=== PATIENT | female | born 1990 | race Caucasian/White ===

== ENCOUNTER → 2019-06-17 10:10 | Outpatient (CLI) | payer OTHER, SELFPAY ==
--- NOTE | ~2019-06-17 | XR_ITS ---
EXAMINATION: XR lumbar spine 2-3V DATE: 06/17/2019 10:48 INDICATION: Dorsalis unspecified TECHNIQUE: Anteroposterior and lateral views of the lumbar spine, and cone-down lateral view of the l umbosacral junction were obtained. COMPARISON: None. FINDINGS: No fracture is identified. There is mild lumbar levocurvature. There are 2 mm of retrolisth esis of L5 on S1. Vertebral body alignment is otherwise normal. The vertebral body heights and interv ertebral disc spaces are maintained. The bowel gas pattern is normal. IMPRESSION: 1. Mild lumbar spondylosis without acute findings. Reviewed, dictated and finalized at location B.
== END ==
PROVIDERS: PCP Physician Assistant Medical; Visit Provider Nurse Practitioner Family
DX: M54.9 Dorsalgia, unspecified (principal); M47.816 Spondylosis without myelopathy or radiculopathy, lumbar region
CPT/HCPCS: 72100

== ENCOUNTER 2019-07-22 22:27 | Emergency (ER) | payer OTHER, SELFPAY ==
[2019-07-22 22:28] VITALS: BP 132/76; PULSE 107; RESP 18; TEMP 36.2; O2SAT 100
[2019-07-22] MEDS: LIDOCAINE HCL 1% LOCAL INJ 20 ML VIAL (23:06)
--- NOTE | 2019-07-22 23:09 | ED.UPPEXIN ---
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 Denies any other injuries. Td 2 years ago Severity: mild Related Data Allergies Allergy/AdvReac Type Severity Reaction Status Date / Time No Known Allergies Allergy Verified 07/22/19 22:28 Review of Systems Review of Systems: All systems reviewed & are unremarkable except as noted in HPI and below PMFSH Social History Social History Smoking status: Former smoker Smoking end date: 03/24/15 Alcohol intake: current Gender identity (if verbalized by the patient): Female Exam Const: General: no acute distress Extrem: Other: metal fish hook palmar aspect of left hand, neurovasc intact Course Vital Signs Vital signs: Vital Signs Temperature 36.2 C L 07/22/19 22:28 Pulse Rate 107 H 07/22/19 22:28 Respiratory Rate 18 07/22/19 22:28 Blood Pressure 132/76 07/22/19 22:28 Pulse Oximetry 100 07/22/19 22:28 Temperature 36.2 C L 07/22/19 22:28 Pulse Rate 107 H 07/22/19 22:28 Respiratory Rate 18 07/22/19 22:28 Blood Pressure 132/76 07/22/19 22:28 Pulse Oximetry 100 07/22/19 22:28 Procedures Foreign Body Removal Foreign Body #1: Foreign Body Removal Date: 07/22/19 Foreign Body Removal Time: 23:13 Time Out Performed: yes Site: left and upper extremity Description of foreign body: fish hook Sedation/Analgesia: none Technique: manual removal and removal with forceps Complications: none Post-procedure exam: awake, alert Neurovascular: normal distal pulse, normal capillary fill, distal light touch sensation intact, distal motor function normal and no signs of compartment syndrome Discharge Plan Discharge Clinical Impression: Foreign body in hand Qualifiers: Encounter type: initial encounter Laterality: left Qualified Code(s): S60.552A - Superficial foreign body of left hand, initial encounter Patient Disposition: Home, Self-Care Condition: Improved Instructions: Antibiotic Form, Puncture Wound (ED) Prescriptions: No Action dextroamphetamine-amphetamine [Adderall] 10 mg tablet 10 mg PO DAILY Qty: 30 RF: 0 dextroamphetamine-amphetamine [Adderall XR] 15 mg capsule,extended release 24hr 15 mg PO QAM Qty: 30 RF: 0 duloxetine 30 mg capsule,delayed release(DR/EC) 30 mg PO DAILY Qty: 30 RF: 0 Follow-up/Referrals: Verónica Rodriguez PAC [Primary Care Provider] - 07/26/19 Time of Disposition: 23:26
[2019-07-22 23:35] VITALS: BP 121/76; PULSE 71; RESP 16; TEMP 36.7; O2SAT 100
== END 2019-07-22 23:41 | disposition home or self-care (01) ==
LOC: ANHED 23:38
PROVIDERS: Emergency Provider Emergency Medicine; PCP Physician Assistant Medical
DX: S60.552A Superficial foreign body of left hand, initial encounter (principal); Z87.891 Personal history of nicotine dependence; W45.8XXA Other foreign body or object entering through skin, initial encounter
CPT/HCPCS: 99282

== ENCOUNTER 2019-11-14 22:02 | Emergency (ER) | payer OTHER, SELFPAY ==
--- NOTE | ~2019-11-14 | XR_ITS ---
EXAMINATION: XR finger 2nd RT min 2V EXAM DATE: 11/14/2019 22:56 INDICATION: Cat bite to distal 2nd digit. Pain. TECHNIQUE: Right 2nd finger frontal, lateral and oblique projections obtained and reviewed. There is no prior study for comparison. FINDINGS: There are no bony erosions identified. There are no acute right 2nd finger fractures or di slocations identified. There is no subcutaneous gas. The soft tissue is unremarkable. There are n o radiopaque foreign bodies. IMPRESSION: 1. Unremarkable XR finger 2nd RT min 2V exam. Reviewed, dictated and finalized at location B.
[2019-11-14 22:08] VITALS: BP 123/87; PULSE 112; RESP 14; TEMP 37; O2SAT 100
[2019-11-14] MEDS: AMOXICILLIN/CLAVULANATE K 875-125 MG TAB 1 TABLET PO (22:44)
--- NOTE | 2019-11-14 23:24 | ED.ANIMALBIT ---
HPI - Animal Bite General Chief Complaint: Animal Bite Stated Complaint: cat bite Time Seen by Provider: 11/14/19 22:26 History of Present Illness HPI narrative: Patient is a 29-year-old female who presents ER after a cat bite to her right second digit. 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 Scratched her forearm and left ear. Then bit her right second digit. The cat is vaccinated to her knowledge. She is up-to-date on her immunizations. She has throbbing pain in her distal fingertip where there are puncture wounds to the fat pad x2 and little disruption of the cuticle on the volar aspect. Related Data Allergies Allergy/AdvReac Type Severity Reaction Status Date / Time No Known Allergies Allergy Verified 11/14/19 22:12 Review of Systems Constitutional: Constitutional: Denies chills and Denies fever(s) Musculoskeletal: Comments: Finger pain right second Neurologic: Comments: Puncture wounds to finger and cat scratches. PMFSH Social History Social History Smoking status: Former smoker Smoking end date: 03/24/15 Alcohol intake: current Gender identity (if verbalized by the patient): Female Exam Narrative: Exam Narrative: GENERAL: Well-appearing, well-nourished, and in no acute distress. HEAD: Normocephalic, atraumatic. EXTREMITIES: Normal range of motion. No edema. SKIN: Warm, dry. Abrasion to the right ear and right forearm/volar hand. Puncture wound to the second finger fat pad x2 without drainage and mild disruption of the cuticle over the volar aspect of the right second digit. NEURO: No focal deficits. Alert and oriented x3. PSYCH: Normal mood and affect. Course Course Emergency Course: Educated. Received first dose of the antibiotic. Discharge home. Vital Signs Vital signs: Vital Signs Temperature 98.6 F 11/14/19 22:08 Pulse Rate 112 H 11/14/19 22:08 Respiratory Rate 14 11/14/19 22:08 Blood Pressure 123/87 11/14/19 22:08 Pulse Oximetry 100 11/14/19 22:08 Temperature 98.6 F 11/14/19 22:08 Pulse Rate 112 H 11/14/19 22:08 Respiratory Rate 14 11/14/19 22:08 Blood Pressure 123/87 11/14/19 22:08 Pulse Oximetry 100 11/14/19 22:08 MDM - Animal Bite Imaging Data My impression: XR right second digit: Negative Discharge Plan Discharge Clinical Impression: Cat bite Patient Disposition: Home, Self-Care Condition: Stable Instructions: Antibiotic Form, Animal Bite (ED) Additional Instructions: Take the full course of antibiotics. Return to the ER if you have pus draining from your finger, you have a swollen red finger that cannot be moved, you have additional concerns such as fever over 100.4 ?F. Prescriptions: New amoxicillin-pot clavulanate [Augmentin] 875-125 mg tablet 1 tablet PO Q12H Qty: 20 RF: 0 No Action duloxetine 60 mg capsule, delayed rel sprinkle 60 mg PO DAILY Qty: 90 RF: 0 dextroamphetamine-amphetamine [Adderall] 10 mg tablet 10 mg PO DAILY Qty: 30 RF: 0 dextroamphetamine-amphetamine [Adderall XR] 15 mg capsule,extended release 24hr 15 mg PO QAM Qty: 30 RF: 0 Follow-up/Referrals: Verónica Rodriguez, PAC [Primary Care Provider] - 1 Week
[2019-11-14 23:49] VITALS: BP 134/82; PULSE 74; RESP 19; TEMP 36.3; O2SAT 100
== END 2019-11-14 23:50 | disposition home or self-care (01) ==
PROVIDERS: Emergency Provider Emergency Medicine; PCP Physician Assistant Medical
DX: S61.250A Open bite of right index finger without damage to nail, initial encounter (principal); Z87.891 Personal history of nicotine dependence; W55.01XA Bitten by cat, initial encounter
CPT/HCPCS: 73140; 99283; A9270

== ENCOUNTER 2019-11-15 08:12 | Emergency (ER) | payer OTHER, SELFPAY ==
[2019-11-15 08:19] VITALS: BP 138/94; PULSE 104; RESP 16; TEMP 36.6; O2SAT 99
--- NOTE | 2019-11-15 08:21 | ED.ANIMALBIT ---
HPI - Animal Bite General Chief Complaint: Animal Bite Stated Complaint: cat bite Time Seen by Provider: 11/15/19 08:20 History of Present Illness HPI narrative: Cat bite to the right index finger last night while at work. Seen here after the injury. Started on augmentin and given Innis. She is back now because she has severe pain and swelling of the finger. She tried the Innis without relief. No fever. Related Data Allergies Allergy/AdvReac Type Severity Reaction Status Date / Time No Known Allergies Allergy Verified 11/14/19 22:12 Review of Systems Review of Systems: All systems reviewed & are unremarkable except as noted in HPI and below Constitutional: Constitutional: Denies fever(s) Cardiovascular: Cardiovascular: Denies chest pain Respiratory: Respiratory: Denies dyspnea Psychiatric: Psychiatric: Reports anxiety [facility] Family History Family History Mother Family history of thyroid disease Family history of cardiovascular disease Social History Social History Smoking status: Former smoker Smoking end date: 03/24/15 Alcohol intake: current Gender identity (if verbalized by the patient): Female Exam Const: General: healthy appearing, no acute distress and alert Orientation/consciousness: patient oriented x3 HENMT: Head: normal to inspection Resp: Effort & Inspection: normal respiratory effort Auscultation: clear to auscultation bilaterally Cardio: Rate: regular rate Rhythm: regular rhythm Skin: Other: Abrasiosn to the face and right forearm. 3 small punture wounds to the distal right index finger Neuro: General: patient oriented x3 Speech: normal speech Other: Sensation and motor intact Extrem: Other: Right index finger severely swollen Psych: Affect: Anxious affect present Course Vital Signs Vital signs: Vital Signs Temperature 36.6 C 11/15/19 08:19 Pulse Rate 104 H 11/15/19 08:19 Respiratory Rate 16 11/15/19 08:19 Blood Pressure 138/94 H 11/15/19 08:19 Pulse Oximetry 99 11/15/19 08:19 Temperature 36.6 C 11/15/19 08:19 Pulse Rate 78 11/15/19 10:34 Respiratory Rate 16 11/15/19 10:34 Blood Pressure 116/68 11/15/19 10:34 Pulse Oximetry 100 11/15/19 10:34 Procedures Abscess I/D hand: Side (if applicable): right Technique: needle aspiration Amount of fluid expressed (mL): 1 Irrigation: No Packing used?: none I&D Results: Pus Abcess I&D Additional Comments: Puncture wounds from bite extended slightly and finger soaked in hypertonic solution. Nerve Block Nerve Block 1: Local Anesthetic: lidocaine 1% Side: right Nerve Blocks: digital Procedure Successful: Yes Patient Tolerated Procedure: well Complications: none MDM - Animal Bite Differential Diagnosis Differential diagnosis: Likely cat bite Medical Records Attestation: I reviewed the patient's medical records. Discharge Plan Discharge Clinical Impression: Cat bite Qualifiers: Encounter type: subsequent encounter Qualified Code(s): W55.01XD - Bitten by cat, subsequent encounter Patient Disposition: Home, Self-Care Condition: Stable Instructions: Antibiotic Form, Animal Bite (ED) Additional Instructions: Continue antibiotics. Continue soaking in warm water to help wounds drain. Prescriptions: No Action duloxetine 60 mg capsule, delayed rel sprinkle 60 mg PO DAILY Qty: 90 RF: 0 amoxicillin-pot clavulanate [Augmentin] 875-125 mg tablet 1 tablet PO Q12H Qty: 20 RF: 0 hydrocodone-acetaminophen [Innis] 5-325 mg tablet 1 tablet PO Q8H PRN (Reason: pain) Qty: 10 RF: 0 amoxicillin-pot clavulanate [Augmentin] 875-125 mg tablet 1 tablet PO Q12H Qty: 20 RF: 0 dextroamphetamine-amphetamine [Adderall] 10 mg tablet 10 mg PO DAILY Qty: 30 RF: 0 dextroamphet
[2019-11-15] MEDS: KETOROLAC (*BKC) 60 MG/2 ML VIAL IM (08:42)
[2019-11-15 09:19] VITALS: BP 138/75; PULSE 72; RESP 16; O2SAT 100
--- NOTE | 2019-11-15 09:19 | PC.NURSE ---
ÁLVARO LOPEZ AT BEDSIDE WITH MYSELF FOR LIDOCAINE INJECTION, PT TOLERATING PROCEDURE WELL.
[2019-11-15] MEDS: SODIUM CHLORIDE 3% 500 ML BAG 50 ML XX (09:53)
--- NOTE | 2019-11-15 09:53 | PC.NURSE ---
PT FINGER SOAKING IN 3% NS IN BASIN AT THIS TIME.
[2019-11-15 10:34] VITALS: BP 116/68; PULSE 78; RESP 16; O2SAT 100
== END 2019-11-15 10:35 | disposition home or self-care (01) ==
PROVIDERS: Emergency Provider Emergency Medicine; PCP Physician Assistant Medical
DX: S61.250A Open bite of right index finger without damage to nail, initial encounter (principal); Z87.891 Personal history of nicotine dependence; W55.01XA Bitten by cat, initial encounter
CPT/HCPCS: 10160; 96372; 99283; J1885; J7131

== ENCOUNTER 2019-12-25 00:58 | Emergency (ER) | payer OTHER, SELFPAY ==
[2019-12-25 01:05] VITALS: BP 128/95; PULSE 108; RESP 20; TEMP 36.6; O2SAT 100
--- NOTE | 2019-12-25 01:50 | ECG_ITS ---
Measurements Intervals [place] Rate: 95 P: 71 GA: 119 QRS: -5 QRSD: 92 T: 47 QT: 354 QTc: 447 Interpretive Statements SINUS RHYTHM WITH SHORT GA INTERVAL POSSIBLE LEFT ATRIAL ENLARGEMENT BORDERLINE ECG Electronically Signed On 12-25-2019 7:32:16 CDT by Tadeo Duran D.O.
--- NOTE | 2019-12-25 01:51 | ED.CHESTPAIN ---
HPI - Chest Pain General Chief Complaint: Chest Pain Stated Complaint: Nausea, CP Time Seen by Provider: 12/25/19 01:09 Source: patient Mode of arrival: ambulatory Limitations: no limitations History of Present Illness HPI narrative: This patient is a 29 year old female with history of ADHD and anxiety who presents for evaluation of nausea and chest pain. Patient reports she has chronic nausea due to her duloxetine but she has worsening nausea over the past 36 hours. She has taken zofran without relief. She denies associated abdominal pain or diarrhea. She also complains of intermittent midsternal chest pressure that is intermittent. She states this pain occurs mostly when she wakes up to go to work at night. She denies fever , cough or chills. LMP 2 weeks ago. Related Data Allergies Allergy/AdvReac Type Severity Reaction Status Date / Time No Known Allergies Allergy Verified 12/25/19 01:37 Review of Systems Review of Systems: All systems reviewed & are unremarkable except as noted in HPI and below Constitutional: Constitutional: Denies chills and Denies fever(s) Cardiovascular: Cardiovascular: Reports chest pain and Denies radiating jaw, neck or arm pain Respiratory: Respiratory: Denies cough and Denies dyspnea Gastrointestinal: Gastrointestinal: Denies abdominal pain, Denies diarrhea, Reports nausea and Denies vomiting Genitourinary: Genitourinary: Denies hematuria, Denies dysuria and Denies urinary incontinence PMFSH Past Medical History Medical History (Updated 12/25/19 @ 03:59 by Anisha Lara MD) Anxiety Surgical History Surgical History (Updated 12/25/19 @ 02:06 by Anisha Lara MD) No significant past surgical history Social History Social History Smoking status: Former smoker Smoking end date: 03/24/15 Alcohol intake: current Gender identity (if verbalized by the patient): Female Exam Narrative: Exam Narrative: GENERAL: Well-appearing, well-nourished, and in no acute distress. HEAD: Normocephalic, atraumatic EYES: EOMI, conjunctiva clear without discharge NECK: Supple, without lymphadenopathy or mass RESPIRATORY: No respiratory distress, Airway patent, Respirations non-labored, Clear to auscultation without rales, rhonchi or wheeze HEART: Regular rate and rhythm. No murmur heard. Normal peripheral pulses. ABDOMEN: Soft, nontender, nondistended, normal active bowel sounds. No masses. No rebound or guarding, No organomegaly. EXTREMITIES: No edema, normal strength with full range of motion. SKIN: Warm, dry, normal color without rash NEURO: Alert and oriented x3. CN 2-12 grossly intact. No focal deficits. PSYCH: Normal mood and affect. Course Reevaluation(s) Reevaluation #1: Patient was sleeping. She states her nausea has resolved. I discussed labs are unremarkable. She will be discharged with prescription of phenergan. Date: 12/25/19 Time: 03:57 Vital Signs Vital signs: Vital Signs Temperature 97.8 F 12/25/19 01:05 Pulse Rate 108 H 12/25/19 01:05 Respiratory Rate 20 12/25/19 01:05 Blood Pressure 128/95 H 12/25/19 01:05 Pulse Oximetry 100 12/25/19 01:05 Temperature 97.8 F 12/25/19 01:05 Pulse Rate 105 H 12/25/19 04:01 Respiratory Rate 20 12/25/19 04:01 Blood Pressure 112/74 12/25/19 04:01 Pulse Oximetry 100 12/25/19 04:01 MDM - Chest Pain Lab Data Attestation: I reviewed the patient's lab results. Result diagrams: 12/25/19 02:05 12/25/19 02:05 Labs: Lab Results 12/25/19 12/25/19 12/25/19 Range/Units 02:05 02:05 02:05 WBC 3.9 L (4.5-10.0) K/mm3 RBC 4.82 (4.2-5.4) M/mm3 Hgb 14.6 (12.0-15.0) g/dL Hct 42.9 (37.0-47.0) % MCV 89.0 (80-100) fl MCH 30.3 (26-34) pg MCHC 34.0 (32-36) g/dl RDW 11.7 (11.5-14.5) % Plt Count 266 (150-375) k/mm3 MPV 9.9 (7.4-10.4) fl Immature
--- NOTE | 2019-12-25 02:00 | PC.NURSE ---
Bedside test came back with slight line, another was done, same result. A third test was done, negative, per ERP beta HCG ordered.
[2019-12-25] MEDS: PROMETHAZINE HCL 25 MG/ML AMPUL 12.5 MG IV PUSH (02:08)
[2019-12-25] MEDS: LACTATED RINGERS 1,000 ML 999 ML IV CONT (02:08)
[2019-12-25 02:13] LABS: Eosinophils Absolute Auto 0.1 K/mm3 (0-0.3); Eosinophils Percent Auto 1.3 % (0-4.4); Hematocrit 42.9 % (37.0-47.0); Hemoglobin 14.6 g/dL (12.0-15.0); Lymphocytes Absolute Auto 1.25 K/mm3 (0.9-3.2); Lymphocytes Percent Auto 31.9 % (18.3-44.2); Mean Corpuscular Hemoglobin 30.3 pg (26-34); Mean Platelet Volume 9.9 fl (7.4-10.4); Monocytes Absolute Auto 0.4 K/mm3 (0.1-0.6); Monocytes Percent Auto 10.5 % (2.6-8.5); Neutrophils Absolute Auto 2.2 K/mm3 (1.3-6.7); Neutrophils Percent Auto 55.3 % (45.5-73.1); Platelet Count Result 266 k/mm3 (150-375); Red Blood Count 4.82 M/mm3 (4.2-5.4); Red Cell Distribution Width 11.7 % (11.5-14.5); White Blood Count 3.9 K/mm3 (4.5-10.0)
[2019-12-25 02:24] LABS: Add Urine Microscopic? NO; Appearance Urine Clear (Clear); Bilirubin Urine Negative (Negative); Blood Urine Negative (Negative); Color Urine Colorless (Yellow); Glucose Urine UA Negative (Negative); Ketones Urine Negative (Negative); Leukocyte Esterase Ur Negative LEU/UL (Negative); Nitrate Urine Negative (Negative); Protein Urine Negative (Negative); Urobilinogen Urine Negative mg/dL (<2.0)
[2019-12-25 02:25] LABS: Specific Grav Ur 1.003 (1.001-1.035)
[2019-12-25 02:26] LABS: Alanine Aminotransferase 33 U/L (4-35); Albumin Level 4.7 g/dL (3.5-5.1); Alkaline Phosphatase 52 U/L (38-126); Anion Gap 10 mmol/L (8-16); Aspartate Amino Transferase 32 U/L (14-36); Bilirubin,Total 0.4 mg/dL (0.2-1.3); Blood Urea Nitrogen 9 mg/dL (7-17); Calcium 9.6 mg/dL (8.4-10.2); Carbon Dioxide 29 mmol/L (22-30); Chloride 103 mmol/L (98-107); Estimated Glomerular Filt Rate > 60; Glucose 79 mg/dL (65-105); Lipase 72 U/L (23-300); Magnesium 2.1 mg/dL (1.6-2.3); Sodium 142 mmol/L (137-145)
[2019-12-25 02:27] LABS: D Dimer 0.32 ug/mL (<0.48)
[2019-12-25 02:52] LABS: Troponin I < 0.012 ng/mL (0.000-0.034)
[2019-12-25 03:38] LABS: Beta HCG Quantitative < 2.39 mIU/ML
[2019-12-25 04:01] VITALS: BP 112/74; PULSE 105; RESP 20; O2SAT 100
== END 2019-12-25 04:11 | disposition home or self-care (01) ==
PROVIDERS: Emergency Provider General Practice; PCP Physician Assistant Medical
DX: R07.89 Other chest pain (principal); R11.0 Nausea; F90.9 Attention-deficit hyperactivity disorder, unspecified type; F41.9 Anxiety disorder, unspecified; Z87.891 Personal history of nicotine dependence; R94.31 Abnormal electrocardiogram [ECG] [EKG]
CPT/HCPCS: 36415; 80053; 81003; 83690; 83735; 84484; 84702; 85025; 85380; 93005; 96361; 96374; 99284; J2550; J7120

== ENCOUNTER 2020-03-30 06:54 | Outpatient (NON) | payer OTHER, SELFPAY ==
[2020-03-30 19:23] LABS: SARS-CoV-2 RNA PCR Negative
== END 2020-03-30 06:55 ==
LOC: ANHCOVIDDT 07:14
PROVIDERS: PCP Physician Assistant Medical; Visit Provider Physician Assistant Medical
DX: R68.89 Other general symptoms and signs (principal); Z20.822 Contact with and (suspected) exposure to COVID-19
CPT/HCPCS: C9803; U0003

== ENCOUNTER 2020-11-16 09:35 | Outpatient (CLI) | payer OTHER, SELFPAY ==
--- NOTE | ~2020-11-16 | US_ITS ---
EXAMINATION: US abdomen complete EXAM DATE: 11/16/2020 10:30 INDICATION: Leukopenia. TECHNIQUE: Multiple grayscale and Doppler images of the complete abdomen were obtained (by a technolo gist who performed the scan) and subsequently reviewed. There is no prior study for comparison. FINDINGS: The abdominal aorta is normal in caliber. Visualized portion IVC is patent. The pancreatic head a nd body are normal in appearance. The pancreatic tail is not visualized. The liver has normal echogenicity and contour. There are no focal liver lesions identified. There is no evidence of intrahepatic biliary duct dilation. Portal venous flow was seen in the hepatopedal , normal direction and has normal Doppler waveform. Common bile duct measures 3 mm, which is normal. The gallbladder wall is normal in thickness, with ex pected amount of distention. No sonographic evidence of pericholecystic fluid. There is no cholelit hiases. Technologist performing exam reports patient did not demonstrate sonographic Mo's sign. Please note that this sign is less reliable in patients who have received pain medication. Right kidney: There is normal contour and echogenicity. It measures 10.8 x 3.5 x 5.1 centimeters. There are no focal renal lesions identified. There is no hydronephrosis. Left kidney: There is normal contour and echogenicity. It measures 11.0 x 5.4 x 5 point centimeters. There are no focal renal lesions identified. There is no hydronephrosis. The spleen measures 9.6 centimeters and is morphologically normal. IMPRESSION: 1. Unremarkable complete abdominal ultrasound exam. Reviewed, dictated and finalized at location A.
== END 2020-11-16 09:36 | disposition home or self-care (01) ==
LOC: ANHIMG 09:38
PROVIDERS: PCP Physician Assistant Medical; Visit Provider Internal Medicine Hematology & Oncology
DX: D72.819 Decreased white blood cell count, unspecified (principal); R60.0 Localized edema
CPT/HCPCS: 76700

== ENCOUNTER 2020-12-25 13:39 | Emergency (ER) | payer OTHER, SELFPAY ==
--- NOTE | 2020-12-25 14:01 | PC.NURSE ---
Pt called into triage room by RN. Pt reported that she has a friend coming to pick her up to take her somewhere else to be seen since we have multiple people waiting in our ER. RN asked to take her VS at least. Pt continues wanting to leave and does not wish to proceed with triage.
--- NOTE | 2020-12-25 14:02 | PC.NURSE ---
BP 133/76, HR 100, 100% on RA
== END 2020-12-26 04:10 | disposition left against medical advice (07) ==
DX: Z53.21 Procedure and treatment not carried out due to patient leaving prior to being seen by health care provider (principal)
CPT/HCPCS: 99199